=== PATIENT | female | born 1985 | race Caucasian/White ===

== ENCOUNTER 2017-07-31 17:38 | Emergency (ER) | payer BC ==
[2017-07-31 17:50] VITALS: BP 121/88
--- NOTE | 2017-07-31 19:22 | UC ---
Ear Complaint HPI - History of Current Complaint Chief Complaint: UCEar Stated Complaint: EAR COMPLAINT Time Seen by Provider: 07/31/17 19:10 Hx Last Menstrual Period: 07/10/17 Pain Intensity: 5 - Allergies/Home Medications Allergies/Adverse Reactions: Allergies Allergy/AdvReac Type Severity Reaction Status Date / Time No Known Allergies Allergy Verified 07/31/17 17:50 Home Medications: Home Medications Nuva Ring 07/31/17 [History] PMH/Surg Hx/FS Hx/Imm Hx - Surgical History Surgical History: None - Social History Alcohol Use: Occasionally Substance Use Type: None Smoking Status (MU): Never Smoked Tobacco Physical Exam Vital Signs: Initial Vital Signs Temp 98.9 F 07/31/17 17:43 Pulse 88 07/31/17 17:43 Resp 16 07/31/17 17:43 BP 121/88 07/31/17 17:43 Pulse Ox 100 07/31/17 17:43 Discharge - Discharge Plan Condition: Stable Disposition: HOME Prescriptions: Ciproflox/Dexameth OTIC.SUSP* [Ciprodex OTIC.SUSP*] 4 drop .SEE ORDER BID #1 [id number] Patient Education Materials: Ibuprofen (By mouth), Ear Infection (ED) Referrals: [facility] [place] [facility] [Outside] - If Needed
== END 2017-07-31 19:33 | disposition home or self-care (01) ==
LOC: UCEAST 17:38
DX: H93.90 Unspecified disorder of ear, unspecified ear (principal)
CPT/HCPCS: 99211; G0463

== ENCOUNTER 2017-11-26 12:39 | Emergency (ER) | payer BC ==
[2017-11-26 12:47] VITALS: BP 109/52
--- NOTE | 2017-11-26 13:46 | ED ---
Throat Pain/Nasal Congestion - HPI Summary HPI Summary: 32-year-old female presents to sore throat for the past 2 days. She admits to occasional fever. States she's been taking ibuprofen otherwise the swelling really increases. She denies any bowel pain. She denies any nausea vomiting. She denies any cough. She has no medical conditions. She has been traveling a lot. She denies any history of strep or mono. <Rossy Rios - Last Filed: 11/26/17 15:17> <Emily Cervantes - Last Filed: 11/26/17 18:13> - History of Current Complaint Chief Complaint: UCGeneralIllness Time Seen by Provider: 11/26/17 13:25 - Allergies/Home Medications Allergies/Adverse Reactions: Allergies Allergy/AdvReac Type Severity Reaction Status Date / Time No Known Allergies Allergy Verified 07/31/17 17:50 PMH/Surg Hx/FS Hx/Imm Hx Endocrine/Hematology History: Denies: Hx Diabetes, Hx Thyroid Disease Cardiovascular History: Denies: Hx Hypertension Respiratory History: Denies: Hx Asthma, Hx Chronic Obstructive Pulmonary Disease (COPD) GI History: Denies: Hx Ulcer Infectious Disease History: No Infectious Disease History: Denies: Hx Hepatitis, Hx Human Immunodeficiency Virus (HIV), Traveled Outside the [place] in Last 30 Days - Family History Known Family History: Positive: None - Social History Alcohol Use: Occasionally Substance Use Type: Reports: None Smoking Status (MU): Never Smoked Tobacco <Rossy Rios - Last Filed: 11/26/17 15:17> Review of Systems Positive: Fever Positive: Sore Throat. Negative: Nasal Discharge Negative: Chest Pain Negative: Shortness Of Breath, Cough Positive: Headache All Other Systems Reviewed And Are Negative: Yes <Rossy Rios - Last Filed: 11/26/17 15:17> Physical Exam Triage Information Reviewed: Yes Vital Signs On Initial Exam: Initial Vitals Temp Pulse Resp BP Pulse Ox 98.4 F 85 16 109/52 100 11/26/17 12:45 11/26/17 12:45 11/26/17 12:45 11/26/17 12:45 11/26/17 12:45 Vital Signs Reviewed: Yes Appearance: Positive: Well-Appearing Skin: Positive: Warm, Dry Head/Face: Positive: Normal Head/Face Inspection Eyes: Positive: Normal, EOMI, MITCHEL, Conjunctiva Clear ENT: Positive: Normal ENT inspection, Pharyngeal erythema, TMs normal, Tonsillar swelling - +3, Uvula midline, Other - soft palate symmetric. Negative : Tonsillar exudate, Trismus, Muffled voice Neck: Positive: Supple, Nontender, No Lymphadenopathy Respiratory/Lung Sounds: Positive: Clear to Auscultation, Breath Sounds Present Cardiovascular: Positive: Normal, RRR Musculoskeletal: Positive: Normal Neurological: Positive: Normal Psychiatric: Positive: Normal <Rossy Rios - Last Filed: 11/26/17 15:17> Vital Signs On Initial Exam: Initial Vitals Temp Pulse Resp BP Pulse Ox 98.4 F 85 16 109/52 100 11/26/17 12:45 11/26/17 12:45 11/26/17 12:45 11/26/17 12:45 11/26/17 12:45 <Emily Cervantes - Last Filed: 11/26/17 18:13> Diagnostics - Vital Signs Vital Signs Temp Pulse Resp BP Pulse Ox 11/26/17 12:45 98.4 F 85 16 109/52 100 <Rossy Rios - Last Filed: 11/26/17 15:17> - Vital Signs Vital Signs Temp Pulse Resp BP Pulse Ox 11/26/17 12:45 98.4 F 85 16 109/52 100 - Laboratory Lab Results: Lab Results 11/26/17 Range/Units 13:57 Group A Strep Rapid Negative (Negative) Lab Statement: Any lab studies that have been ordered have been reviewed, and results considered in the medical decision making process. <Emily Cervantes - Last Filed: 11/26/17 18:13> EENT Course/Dx - Course Course Of Treatment: 32-year-old female presents to sore throat for the past 2 days. She admits to occasional fever. States she's been taking ibuprofen otherwise the swelling really increases. She denies any bowel pain. She denies any nausea vomiting. She denies any cough. She has no medical conditions. She has been traveling a lot. She denies any history of strep or mono. On exam pharynx erythematous, uvula midline. Soft palate symmetric. Strep neg. treat with Decadron. Patient understands agrees with plan. - Differential Diagnoses Differential Diagnoses: Pharyngitis, Tonsilitis, URI/Bronchitis <Rossy Rios - Last Filed: 11/26/17 15:17> <Emily Cervantes - Last Filed: 11/26/17 18:13> - Diagnoses Provider Diagnoses: Pharyngitis Discharge - Sign-Out/Discharge Documenting (check all that apply): Discharge/Admit/Transfer - Billing Disposition and Condition Condition: GOOD Disposition: Home <Rossy Rios - Last Filed: 11/26/17 15:17> - Billing Disposition and Condition Condition: GOOD Disposition: Home <Emily Cervantes - Last Filed: 11/26/17 18:13> - Discharge Plan Condition: Good Disposition: HOME Prescriptions: Dexamethasone TAB* [Decadron TAB*] 4 mg PO DAILY #5 tab Patient Education Materials: Pharyngitis (ED) Referrals: [facility] [place] [facility] [Outside] Additional Instructions: Take steroid once a day for 5 days Take Tylenol or ibuprofen for pain every 6 hours Can gargle salt water Can use cough drops or products such as cloraseptic spray Establish care with primary care physician Return to ED if develop fever does not respond to Tylenol or ibuprofen, inability to swallow, or difficulty breathing or any new or worsening symptoms Attestation Statement User Type: Provider - I was available for consult. This patient was seen by the MACIE. The patient was not presented to, seen by, or examined by me. -Fredrick <Emily Cervantes - Last Filed: 11/26/17 18:13>
== END 2017-11-26 14:20 | disposition home or self-care (01) ==
LOC: UCEAST 12:39
DX: J02.9 Acute pharyngitis, unspecified (principal)
CPT/HCPCS: 87651; 99211; G0463

== ENCOUNTER 2018-10-08 17:30 | Emergency (ER) | payer BC ==
[2018-10-08 20:50] LABS: ABS Basophils 0 10^3/ul (0-0.2); ABS Eosinophils 0.1 10^3/ul (0-0.6); ABS Lymphocytes 2.4 10^3/ul (1.0-4.8); ABS Monocytes 0.4 10^3/ul (0-0.8); ABS Neutrophils 4.5 10^3/ul (1.5-7.7); ABS Nucleated RBC 0 10^3/ul; Eosinophil % 1.3 %; Hematocrit 37 % (33-41); Hemoglobin 12.6 g/dL (12.0-16.0); Lymphocyte % 31.8 %; Mean Corpuscular HGB Conc 34 g/dL (31-36); Mean Corpuscular Hemoglobin 31 pg (27-31); Mean Corpuscular Volume 92 fL (80-97); Mean Platelet Volume 7.9 fL (7.4-10.4); Nucleated Red Blood Cells % 0; Platelet Count 232 10^3/uL (150-450); Red Blood Count 4.08 10^6 /uL (3.70-4.87); Red Cell Distribution Width 13 % (10.5-15); White Blood Count 7.5 10^3/uL (3.5-10.8)
[2018-10-08 21:12] LABS: ALT 45 U/L (7-52); AST 30 U/L (13-39); Albumin 4.6 g/dL (3.2-5.2); Albumin/Globulin Ratio 1.5 (1-3); Alkaline Phosphatase 61 U/L (34-104); Anion Gap 7 mmol/L (2-11); BUN/Creatinine Ratio 19.7 (8-20); Blood Urea Nitrogen 14 mg/dL (6-24); CO2 Carbon Dioxide 24 mmol/L (22-32); Calcium 9.6 mg/dL (8.6-10.3); Chloride 109 mmol/L (101-111); EGFR Non-African American 96.7 (>60); Glucose 92 mg/dL (70-100); HCG Pregnancy < 0.60 mIU/mL; Potassium 4.4 mmol/L (3.5-5.0); Sodium 140 mmol/L (135-145); Total Protein 7.6 g/dL (6.4-8.9)
[2018-10-08 21:34] LABS: Urine Appearance Clear; Urine Bilirubin Negative (Negative); Urine Blood Negative (Negative); Urine Color Yellow; Urine Glucose Negative (Negative); Urine Ketones Negative (Negative); Urine Nitrite Negative (Negative); Urine Protein Negative (Negative); Urine Specific Gravity 1.013 (1.010-1.030); Urine Urobilinogen Negative (Negative)
--- NOTE | 2018-10-08 21:57 | ED ---
Abdominal Pain/Female - HPI Summary HPI Summary: This patient is a 32 year old F presenting to [facility] with a chief complaint of L flank pain radiating to left abdomen that began one week ago. The patient rates the pain 4/10 in severity. Symptoms aggravated by nothing. Symptoms alleviated by nothing. Patient denies vaginal bleeding, vaginal discharge, urinary frequency, and hematuria. The patient states she had an IUD placed one month ago. - History of Current Complaint Chief Complaint: EDFlankPain Stated Complaint: PAIN ON LEFT SIDE PER PT Time Seen by Provider: 10/08/18 21:10 Hx Last Menstrual Period: 11/12/17 ?: No Onset/Duration: Sudden Onset, Lasting Weeks, Still Present Timing: Constant Severity Initially: Moderate Severity Currently: Moderate Pain Intensity: 4 Pain Scale Used: 0-10 Numeric Location: Flank Radiates: Yes Radiates to: Other - Left abdomen Aggravating Factor(s): Nothing Alleviating Factor(s): Nothing Associated Signs and Symptoms: Positive: Other: - Negative vaginal bleeding, vaginal discharge, urinary frequency, and hematuria. Allergies/Adverse Reactions: Allergies Allergy/AdvReac Type Severity Reaction Status Date / Time No Known Allergies Allergy Verified 07/31/17 17:50 PMH/Surg Hx/FS Hx/Imm Hx Previously Healthy: Yes Endocrine/Hematology History: Denies: Hx Diabetes, Hx Thyroid Disease Cardiovascular History: Denies: Hx Hypertension Respiratory History: Denies: Hx Asthma, Hx Chronic Obstructive Pulmonary Disease (COPD) GI History: Denies: Hx Ulcer - Immunization History Date of Tetanus Vaccine: 2016 Date of Influenza Vaccine: none Infectious Disease History: No Infectious Disease History: Denies: Hx Hepatitis, Hx Human Immunodeficiency Virus (HIV), Traveled Outside the [place] in Last 30 Days - Family History Known Family History: Positive: Cardiac Disease, Diabetes - Social History Occupation: Student Lives: With Family Alcohol Use: Rare Hx Substance Use: No Substance Use Type: Reports: None Hx Tobacco Use: No Smoking Status (MU): Never Smoked Tobacco Review of Systems Positive: Other - Positive left flank pain Genitourinary: Other - Negative vaginal bleeding and vaginal discharge Negative: hematuria, urgency All Other Systems Reviewed And Are Negative: Yes Physical Exam - Summary Physical Exam Summary: Appearance: Well appearing, no pain distress Skin: warm, dry, reflects adequate perfusion Head/face: normal Eyes: EOMI, MITCHEL ENT: normal Neck: supple, non-tender Respiratory: CTA, breath sounds present Cardiovascular: RRR, pulses symmetrical Abdomen: mild tenderness in the L flank, soft Musculoskeletal: normal, strength/ROM intact Neuro: normal, sensory motor intact, A&Ox3 Triage Information Reviewed: Yes Vital Signs On Initial Exam: Initial Vitals Temp Pulse Resp BP Pulse Ox 98.6 F 71 16 123/75 98 10/08/18 17:41 10/08/18 17:41 10/08/18 17:41 10/08/18 17:41 10/08/18 17:41 Vital Signs Reviewed: Yes Diagnostics - Vital Signs Vital Signs Temp Pulse Resp BP Pulse Ox 10/08/18 20:04 98.7 F 62 16 135/79 99 10/08/18 17:41 98.6 F 71 16 123/75 98 - Laboratory Lab Results: Lab Results 10/08/18 10/08/18 10/08/18 Range/Units 20:33 20:33 21:27 WBC 7.5 (3.5-10.8) 10^3/uL RBC 4.08 (3.70-4.87) 10^6 /uL Hgb 12.6 (12.0-16.0) g/dL Hct 37 (33-41) % MCV 92 (80-97) fL MCH 31 (27-31) pg MCHC 34 (31-36) g/dL RDW 13 (10.5-15) % Plt Count 232 (150-450) 10^3/uL MPV 7.9 (7.4-10.4) fL Neut % (Auto) 60.6 % Lymph % (Auto) 31.8 % Morgan % (Auto) 5.9 % Eos % (Auto) 1.3 % Baso % (Auto) 0.4 % Absolute Neuts (auto) 4.5 (1.5-7.7) 10^3/ul Absolute Lymphs (auto) 2.4 (1.0-4.8) 10^3/ul Absolute Monos (auto) 0.4 (0-0.8) 10^3/ul Absolute Eos (auto) 0.1 (0-0.6) 10^3/ul Absolute Basos (auto) 0 (0-0.2) 10^3/ul Absolute Nucleated RBC 0 10^3/ul Nucleated RBC % 0 Sodium 140 (135-145) mmol/L Potassium 4.4 (3.5-5.0) mmol/L Chloride 109 (101-111) mmol/L Carbon Dioxide 24 (22-32) mmol/L Anion Gap 7 (2-11) mmol/L BUN 14 (6-24) mg/dL Creatinine 0.71 (0.51-0.95) mg/dL Est GFR ( Amer) 117.0 (>60) Est GFR (Non-Af Amer) 96.7 (>60) BUN/Creatinine Ratio 19.7 (8-20) Glucose 92 (70-100) mg/dL Calcium 9.6 (8.6-10.3) mg/dL Total Bilirubin 0.30 (0.2-1.0) mg/dL AST 30 (13-39) U/L ALT 45 (7-52) U/L Alkaline Phosphatase 61 (34-104) U/L Total Protein 7.6 (6.4-8.9) g/dL Albumin 4.6 (3.2-5.2) g/dL Globulin 3.0 (2-4) g/dL Albumin/Globulin Ratio 1.5 (1-3) Lipase 13 (11.0-82.0) U/L Beta HCG, Quant < 0.60 mIU/mL Urine Color Yellow Urine Appearance Clear Urine pH 7.0 (5-9) Ur Specific [place] 1.013 (1.010-1.030) Urine Protein Negative (Negative) Urine Ketones Negative (Negative) Urine Blood Negative (Negative) Urine Nitrate Negative (Negative) Urine Bilirubin Negative (Negative) Urine Urobilinogen Negative (Negative) Ur Leukocyte Esterase Negative (Negative) Urine Glucose Negative (Negative) Result Diagrams: 10/08/18 20:33 10/08/18 20:33 Lab Statement: Any lab studies that have been ordered have been reviewed, and results considered in the medical decision making process. - CT CT Abdomen and Pelvis CT Interpretation Completed By: Radiologist Summary of CT Findings: CT abdomen and pelvis reveals, per radiologist, 1. No evidence of obstructive uropathy or renal calculi. 2. There is a 2 x 3.0 cm follicular cyst in the left ovary. Minimal free fluid in the pelvis suggests leakage. 3. IUD in place. ED physician has reviewed this radiology report. - Additional Comments Diagnostic Additional Comments: Pelvic US reveals, per radiologist, 1. There is a simple cyst of the left ovary measuring a maximum of 2.3 cm. 2. There is trace free fluid in the posterior pelvic cul-de-sac, cannot exclude ovarian cyst rupture. 3. No evidence for ovarian torsion. ED physician has reviewed this radiology report. Abdominal Pain Fem Course/Dx - Course Course Of Treatment: This patient is a 32 year old F presenting to [facility] with a chief complaint of L flank pain radiating to left abdomen that began one week ago. Physical Exam Findings: Mild tenderness in L flank. CT abdomen and pelvis reveals, per radiologist, 1. No evidence of obstructive uropathy or renal calculi. 2. There is a 2 x 3.0 cm follicular cyst in the left ovary. Minimal free fluid in the pelvis suggests leakage. 3. IUD in place. Pelvic US reveals, per radiologist, 1. There is a simple cyst of the left ovary measuring a maximum of 2.3 cm. 2. There is trace free fluid in the posterior pelvic cul-de- sac, cannot exclude ovarian cyst rupture. 3. No evidence for ovarian torsion. Bloodwork and UA obtained. In the ED course the patient was given Ibuprofen. Patient will be discharged with follow up from PCP. The patient is agreeable with this plan. - Diagnoses Differential Diagnosis: Positive: Ovarian Cyst, Renal Colic, Urinary Tract Infection Provider Diagnoses: Ovarian cyst, Abdominal pain Discharge - Sign-Out/Discharge Documenting (check all that apply): Patient Departure - Discharge home Patient Received Moderate/Deep Sedation with Procedure: No - Discharge Plan Condition: Stable Disposition: HOME Patient Education Materials: Ovarian Cyst (ED), Acute Abdominal Pain (ED) Referrals: [facility] [place] [facility] REFERRAL [Outside] - 2 Days Additional Instructions: RETURN TO THE EMERGENCY DEPARTMENT FOR NEW OR WORSENING SYMPTOMS - Billing Disposition and Condition Condition: STABLE Disposition: Home - Attestation Statements Document Initiated by Scribe: Yes Documenting Scribe: Jesi El Provider For Whom Dinora is Documenting (Include Credential): Dr. Jamaal Alvarez MD Scribe Attestation: Jesi Mcclure scribed for Dr. Jamaal Alvarez MD on 10/09/18 at 0113. Scribe Documentation Reviewed: Yes Provider Attestation: The documentation as recorded by the Jesi borja accurately reflects the service I personally performed and the decisions made by , Dr. Jamaal Alvarez MD Status of Scribe Document: Viewed
[2018-10-09] MEDS ORDERED: Ibuprofen TAB* 600 MG PO ONE (00:02)
[2018-10-09 01:00] VITALS: BP 119/66
== END 2018-10-09 00:51 | disposition home or self-care (01) ==
LOC: ED 17:30
DX: N83.202 Unspecified ovarian cyst, left side (principal); Z97.5 Presence of (intrauterine) contraceptive device
CPT/HCPCS: 36415; 74176; 76856; 80053; 81003; 83690; 84702; 85025; 99282; A9270-GY